=== PATIENT | female | born 1965 | race Caucasian/White ===

== ENCOUNTER 2020-02-11 15:59 | Outpatient (REF) | payer BC, SELFPAY ==
--- NOTE | 2020-02-11 14:15 | PAPFT_PTH ---
PATIENT: Nydia Ash LOC: [facility] U#:[id number] AGE/SX: 54/F ROOM: RE02/11/[address]: Abner Lara MD : 1965 BED: DIS: 02/11/2020 SPEC #: [id number] RECD: 02/11/20 18:17 STATUS: POLLO REQ #: [id number] ANGELA: 02/11/20 14:[address]: Abner Lara DEPT: [facility] Cytology RECD BY: Iesha Singleton ENTERED: 02/11/20 18:17 SP TYPE: PAPFT OTHR DR: Soy Brower Tissues: 1 - CX/ENDOCX FOR PAP SMEARS Procedures: PAP THIN PREP/UVM Screening HPV DNA PROBE Comments: [id number]
== END 2020-02-11 16:19 ==
LOC: LBN 15:59
PROVIDERS: PCP Internal Medicine; Visit Provider Obstetrics & Gynecology
DX: Z11.51 Encounter for screening for human papillomavirus (HPV) (principal)
CPT/HCPCS: 88142; 87624

== ENCOUNTER 2020-03-10 00:42 | Outpatient (CLI) | payer BC, SELFPAY ==
--- NOTE | 2020-03-10 08:00 | DI.MAMMO_ITS ---
EXAM: MAMMO SCREENING CLINICAL HISTORY: screening,Z12.39 TECHNIQUE: Mammograms were interpreted according to the usual protocol including computer analysis w [employer] CAD system, tomosynthesis and C-view imaging. COMPARISON: FINDINGS: The breasts are of moderate density with fairly symmetrical distribution of fibroglandular tissue. N o dominant mass or clumped microcalcification is identified either breast. Current examination jenn red with previous examinations including December 2013 and there is new area of asymmetric density projec gertrude medially and posteriorly in the right breast CC and MLO views. Additional mammographic views of this area are requested to include CC and MLO spot compression views. There are numerous scattered punctate microcalcifications seen throughout both breasts. These appear unchanged from prior study. IMPRESSION: Additional mammographic views of the right breast requested as described above. Breast ultrasound ma y be indicated as well depending on the results of the additional mammographic views. BI-RADS Cat 0 - Assessment Incomplete: Need additional imaging evaluation Breast Density - Category B - Scattered areas of fibroglandular density
--- NOTE | 2020-03-10 08:00 | DI.US_ITS ---
EXAM: US PELVIS TRANSVAGINAL CLINICAL HISTORY: Menorrhagia,N92.0 TECHNIQUE: Ultrasound performed using standard protocol. COMPARISON: No exams were available for comparison FINDINGS: Pelvic ultrasound was performed transabdominally and transvaginally. Please see the accompanying david a sheet for measurements of pelvic structures. The uterus is normal in size and shape and is retroverted. There is a heterogeneous endometrial stripe which is thickened at 13 millimeters. Some increased vas cularity is noted in portions of the endometrium. There is a 7 millimeter endometrial cyst. The ovaries contain multiple small simple cysts or follicles, largest on the right measuring 15 albino meters in diameter. There is a small nonspecific fluid collection adjacent to the left ovary. There is cyst 16 millimeter right paraovarian cyst. Kidneys are normal in size and shape. Incidental 16 millimeter left upper pole simple cysts noted. There is probable small lower pole left renal calculus, nonobstructing. IMPRESSION: Heterogeneous thickened endometrium in a Lilia menopausal patient Possible 5 millimeter nonobstructing left renal calculus. DATA REPOSITORY:
== END 2020-03-10 01:02 ==
PROVIDERS: PCP Internal Medicine; Visit Provider Obstetrics & Gynecology
DX: N85.00 Endometrial hyperplasia, unspecified (principal); N95.9 Unspecified menopausal and perimenopausal disorder; R93.422 Abnormal radiologic findings on diagnostic imaging of left kidney; Z12.31 Encounter for screening mammogram for malignant neoplasm of breast; N64.89 Other specified disorders of breast
CPT/HCPCS: 77063; 77067; 76830; 76856

== ENCOUNTER 2020-03-10 02:35 | Outpatient (CLI) | payer BC, SELFPAY ==
[2020-03-10 10:26] LABS: Abs Immature Grans 0.02 10^3/uL (0.0-0.06); Absolute Basophil Count 0.02 10^3/uL (0.0-0.2); Absolute Eosinophil Count 0.13 10^3/uL (0.0-0.7); Absolute Lymphocyte Count 1.24 10^3/uL (1.2-3.4); Absolute Monocyte Count 0.39 10^3/uL (0.1-0.8); Absolute Neutrophil Count 5.37 10^3/uL (1.2-6.7); Basophils % 0.3; Eosinophils % 1.8; HCT 38.6 % (36.0-46.0); HGB 11.9 g/dL (11.2-15.7); Immature Grans % 0.3; Lymphocytes % 17.3; MCH 24.6 pg (27.0-33.0); MCHC 30.8 % (32.0-36.0); MCV 79.8 fL (80-95); MPV 9.6 fL (8.0-11.0); Monocytes % 5.4; Neutrophils % 74.9; Nucleated RBC 0 %; Platelet Count 344 10^3/uL (130-400); RBC 4.84 10^6/uL (3.93-5.22); RDW 16.8 % (11.7-14.6); RDW-SD 47.8 fL; WBC 7.17 10^3/uL (4.4-10.8)
[2020-03-10 11:30] LABS: ALT 19 U/L (14-59); AST 18 U/L (15-37); Albumin 3.5 g/dL (3.4-5.0); Alkaline Phosphatase 101 U/L (46-116); Anion Gap 8.8 mmol/L (3-11); BUN 11 mg/dL (7-18); Bilirubin, Total 0.3 mg/dL (0.2-1.0); CO2 25.2 mmol/L (21.0-32.0); CREATININE 0.76 mg/dL (0.55-1.02); Calcium 9.1 mg/dL (8.5-10.1); Chloride 105 mmol/L (98-107); Glucose 103 mg/dL (74-106); Sodium 139 mmol/L (136-145); TSH (W/Ref FT4) 1.96 uIU/mL (0.36-3.74); Total Protein 7.4 g/dL (6.4-8.2)
== END 2020-03-10 02:55 ==
PROVIDERS: PCP Internal Medicine; Visit Provider Obstetrics & Gynecology
DX: R63.5 Abnormal weight gain (principal)
CPT/HCPCS: 36415; 80053; 84443; 85025

== ENCOUNTER 2020-03-14 03:49 | Outpatient (CLI) | payer BC, SELFPAY ==
[2020-03-14 13:37] LABS: HCT 34.2 % (36.0-46.0); HGB 10.8 g/dL (11.2-15.7); MCHC 31.6 % (32.0-36.0); MCV 79.2 fL (80-95); Platelet Count 338 10^3/uL (130-400); RBC 4.32 10^6/uL (3.93-5.22); RDW-SD 48.5 fL
[2020-03-15 23:51] LABS: COVID-19 RT-PCR Result NEGATIVE (Negative)
== END 2020-03-14 04:09 ==
PROVIDERS: Visit Provider Obstetrics & Gynecology
DX: Z01.818 Encounter for other preprocedural examination (principal)
CPT/HCPCS: 36415; 85027; 86850; 86900; 86901; U0003

== ENCOUNTER 2020-03-19 07:39 | Day surgery (SDC) | payer BC, SELFPAY ==
[2020-03-19 07:45] VITALS: BP 161/101; PULSE 95; RESP 18; TEMP 35.9; O2SAT 99
[2020-03-19] MEDS: Lactated Ringers 1,000 ML 125 ML IV (08:16)
--- NOTE | 2020-03-19 08:22 | W.PM.HP.N ---
Date of service: 03/19/20 Time of Service: 08:22 Assessment and Plan Assessment and plan (1) Abnormal uterine bleeding: Status: Acute (2) Endometrial thickening on ultrasound: Status: Acute History of Present Illness History of Present Illness Chief Complaint: AUB Narrative: 54-year-old G 13 P 11 presents today for annual examination. The patient has not yet had cessation of menses and these have been regular up until recently where she has developed increasingly heavy and irregular bleeding with intermenstrual spotting. I did see her approximately one month ago for her annual exam and she was referred for ultrasound which demonstrated a thickened heterogenous endometrium measuring 13 mm. My recommendation was for endometrial sampling due to her age and thickened EM on ultrasound. Review of Systems All systems reviewed & are unremarkable except as noted in HPI and below PFSH Medical History (Updated 03/19/20 @ 08:26 by Abner Lara MD) Abnormal uterine bleeding cycles regular. spotting between menses. 06/2015 nl EMBx. Hx of thrombophlebitis (Acute) 1995 Migraine Surgical History section x2 for indications. Fracture, Open Treatment Fx leg. ORIF. Screws removed. Tooth extraction wisdom teeth extraction Family History Mother Essential hypertension Cardiac arrhythmia Hyperlipidemia Sister No problems noted. Other Brain tumor (benign) Social History Smoking/Tobacco Use Status: Never Alcohol Intake: never Drug use: Never Substance use type: does not use Do you feel safe at home: Yes Do you feel safe in your relationship?: Yes Meds Home Medications and Allergies Home Medications Medication Instructions Recorded Confirmed Type acetaminophen [Tylenol] 325 mg PO PRN 06/06/15 03/19/20 History calcium carb-D3-mag ox-zinc ox 1 ea PO DAILY 06/06/15 03/19/20 History [Porfirio Mag Zinc + D Tablet] ibuprofen 200 mg PO PRN 06/06/15 03/19/20 History multivitamin [Multi-Vitamin Daily] 1 ea PO DAILY 06/06/15 03/19/20 History phenylephrine-acetaminophen 1 ea PO PRN 06/06/15 03/19/20 History [Sudafed Pe Pressure+Pain Cplt] vitamin B complex [B Complex] 1 ea PO DAILY 06/06/15 03/19/20 History Allergies Allergy/AdvReac Type Severity Reaction Status Date / Time Penicillins Allergy rash Unverified 03/19/20 07:45 Exam Resp Auscultation: clear to auscultation bilaterally Cardio Rate: regular rate Rhythm: regular rhythm Results Last Vital Signs Temp 96.6 F L 03/19/20 07:45 Pulse 95 H 03/19/20 07:45 Resp 18 03/19/20 07:45 BP 161/101 H 03/19/20 07:45 Pulse Ox 99 03/19/20 07:45 COVID-19 Screening Have you,or household,traveled outside [place] in last 14 days?: No Had IN PERSON contact w/suspected or confirmed C-19 person: No
[2020-03-19] MEDS: Sodium Citrate 30 ML CUP (08:50)
[2020-03-19] MEDS: Lidocaine 1% Multi-Dose 50 ML VIAL (09:05)
--- NOTE | 2020-03-19 09:11 | ENDOMET_PTH ---
PATIENT: Nydia Ash LOC: [facility] U#:[id number] AGE/SX: 55/F ROOM: RE03/19/[address]: Abner Lara MD : 1965 BED: DIS: 03/19/2020 SPEC #: [id number] RECD: 03/19/20 12:19 STATUS: POLLO REMarion #: [id number] ANGELA: 03/19/20 09:[address]: Abner Lara DEPT: Surgical Specimen RECD BY: Jamir Wilson Tissues: 1 - ENDOMETRIUM BX/CURRETTE Procedures: GROSS AND MICRO LEVEL 4 Comments: [id number]
--- NOTE | 2020-03-19 09:24 | W.PM.OP ---
Date of service: 03/19/20 Time of Service: 09:24 Operative Note Operative Note DATE OF PROCEDURE: 03/19/20 PRE-OP DIAGNOSIS: Abnormal uterine bleeding Thickened endometrium on ultrasound POST-OP DIAGNOSIS: same PROCEDURE: Hysteroscopy, D&C SURGEON: Abner Lara ANESTHESIA: ROSA ESTIMATED BLOOD LOSS: 10 PATHOLOGY: other (Endometrial curettings and endometrial polyp) COMPLICATIONS: None Patient was transported to: PACU Patient's condition: stable Findings: 1. Large polyp within the endometrial cavity. Remainder of the lining appeared thin and atrophic Procedure Description: The patient was taken to the operating room and after adequate general anesthesia was obtained the patient was placed in lithotomy position. The patient was prepped and draped in the usual sterile manner. A weighted speculum was placed in the vagina with good visualization of the cervix. The anterior lip of the cervix was grasped with a single-tooth tenaculum. A paracervical block with 10 cc of 1% plain lidocaine was instilled. A 5 mm 30 degree hysteroscope with normal saline distention media was advanced through the cervix. There was a large polyp within the endometrial cavity. The remainder of the lining appeared thin and atrophic. The cavity was explored with polyp forceps and the polyp was removed. Sharp curettage was performed. Several passes were made between sharp curettage and hysteroscopy to ensure that the polyp was removed in total. All specimens were submitted to pathology. The procedure was concluded at this point. All instrumentation was removed. The patient tolerated the procedure well and was transferred to PACU in stable condition.
--- NOTE | 2020-03-19 09:57 | W.PM.DSUDISC ---
Discharge Plan Disposition Patient Disposition: HOME Condition: Good Discharge Details Reason For Visit: AUB. Attending Provider: Abner Lara Primary Care Provider: None,None Home Meds and New Rx's Prescriptions: New lisinopril 10 mg tablet 10 mg PO DAILY Qty: 30 RF: 0 Continued multivitamin [Daily Multi-Vitamin] 1 EACH tablet 1 ea PO DAILY RF: 0 acetaminophen [Tylenol] 325 MG tablet 325 mg PO PRN RF: 0 ibuprofen 200 MG capsule 200 mg PO PRN RF: 0 vitamin B complex [B-Complex] 1 EACH tablet 1 ea PO DAILY RF: 0 Sudafed PE Pressure-Pain 1 EACH tablet 1 ea PO PRN RF: 0 Porfirio Mag Zinc Plus D3 1 EACH tablet 1 ea PO DAILY RF: 0 Discharge Instructions Activity:: Activity as Tolerated Diet:: As Tolerated Discharge Orders Discharge Orders: Discharge Order (Routine); Ordered 03/19/20 Ordered By: Abner Lara DS: Diagnosis Discharge Diagnosis (1) Abnormal uterine bleeding: Status: Acute (2) Endometrial thickening on ultrasound: Status: Acute
[2020-03-19 10:10] VITALS: BP 143/91; PULSE 72; RESP 18; TEMP 36.4; O2SAT 98
== END 2020-03-19 10:30 | disposition home or self-care (01) ==
PROVIDERS: Visit Provider Obstetrics & Gynecology
PROC: 0UDB8ZZ Extraction of Endometrium, Via Natural or Artificial Opening Endoscopic (ICD-10-PCS; CPT 58558; principal; 2020-03-19 09:00)
DX: N93.9 Abnormal uterine and vaginal bleeding, unspecified (principal); N84.0 Polyp of corpus uteri
CPT/HCPCS: 58558; 88305; 99223; J1100; J1885; J2001; J2250; J2405

== ENCOUNTER 2020-03-27 02:14 | Outpatient (CLI) | payer BC, SELFPAY ==
--- NOTE | 2020-03-27 | DI.US_ITS ---
EXAM: MG MAMMO SCREEN CALL BACK UNI CLINICAL HISTORY: F/U MAMMO, NEW ASYMMETRIC DENSITY. TECHNIQUE: Craniocaudal and mediolateral oblique Full Field Digital Mammography views of the breast with Computer Aided Diagnosis followed by Tomosynthesis and breast ultrasound. COMPARISON: US US BREAST RT LIMITED from 03/27/20202011 and 2013 and recent exam 10 March 2020. FINDINGS: Mammography/Tomosynthesis: Masses/Architectural Distortion: None seen. Microcalcifictions: No suspicious pleomorphic-type are seen. Skin Thickening/Nipple Retraction: None. No suspicious persistent abnormality is seen on the additional views performed. Breast US: Echotexture: Normal appearance of the glandular tissue. Shadowing: No suspicious foci. Cyst: None. Solid lesions: None seen. Ductal dilation: None. IMPRESSION: 1. No evidence of malignancy is noted. 2. Unless there is more urgent need, follow-up screening mammography is recommended, as per [place] [employer] guidelines. 3. The findings were discussed with the patient on the date of the examination. BI-RADS Category 1 - Negative Breast Density - Category B - Scattered areas of fibroglandular density A negative radiographic report should not delay biopsy if a dominant or clinically suspicious mass is present. Up to ten percent of cancers are not identified on mammography. A negative report may reinforce clinical impression. Adenosis and dense breasts may obscure an underlying neoplasm. False positive reports average 6 to 10%. Patient will receive a letter notifying them of these results.
== END 2020-03-27 02:34 ==
PROVIDERS: Visit Provider Obstetrics & Gynecology
DX: R92.8 Other abnormal and inconclusive findings on diagnostic imaging of breast (principal); R92.2 Inconclusive mammogram
CPT/HCPCS: 76642; 77063; 77067

== ENCOUNTER 2020-08-04 14:09 | Outpatient (REF) | payer BC, SELFPAY ==
[2020-08-04 14:01] LABS: Anion Gap 8.8 mmol/L (3-11); BUN 9 mg/dL (7-18); CO2 26.2 mmol/L (21.0-32.0); CREATININE 0.78 mg/dL (0.55-1.02); Calcium 9.1 mg/dL (8.5-10.1); Calculated LDL 121 mg/dL (<100); Chloride 105 mmol/L (98-107); Cholesterol 193 mg/dL (<200); Glucose 86 mg/dL (74-106); HDL Cholesterol 40 mg/dL (40-60); Hemoglobin A1C 6.2 % (<5.7); Sodium 140 mmol/L (136-145); Triglyceride 163 mg/dL (<150)
== END 2020-08-04 14:29 ==
LOC: LBN 14:09
PROVIDERS: PCP Nurse Practitioner Family; Visit Provider Nurse Practitioner Family
DX: Z00.00 Encounter for general adult medical examination without abnormal findings (principal); I10 Essential (primary) hypertension
CPT/HCPCS: 80048; 80061; 83036

== ENCOUNTER 2021-11-03 02:23 | Outpatient (CLI) | payer BC, SELFPAY ==
[2021-11-03 14:03] LABS: Anion Gap 7.7 mmol/L (3-11); BUN 11 mg/dL (7-18); CO2 29.3 mmol/L (21.0-32.0); CREATININE 0.8 mg/dL (0.55-1.02); Calcium 9.3 mg/dL (8.5-10.1); Calculated LDL 125 mg/dL (<100); Chloride 106 mmol/L (98-107); Cholesterol 205 mg/dL (<200); Glucose 95 mg/dL (74-106); HDL Cholesterol 53 mg/dL (40-60); Sodium 143 mmol/L (136-145); Triglyceride 136 mg/dL (<150)
== END 2021-11-03 02:24 | disposition home or self-care (01) ==
LOC: LBO 02:23
PROVIDERS: PCP Nurse Practitioner Family; Visit Provider Nurse Practitioner Family
DX: R73.03 Prediabetes (principal)
CPT/HCPCS: 36415; 80048; 80061

== ENCOUNTER → 2023-03-29 01:19 | Outpatient (CLI) | payer BC, SELFPAY ==
--- NOTE | 2023-03-29 08:00 | DI.MAMMO_ITS ---
Exam(s) MAMMO SCREENING EXAM: MAMMO SCREENING CLINICAL HISTORY: screening,z12.39 TECHNIQUE: Mammograms were interpreted according to the usual protocol including computer analysis w [employer] CAD system, tomosynthesis and C-view imaging. COMPARISON: 2013 through 2019 FINDINGS: The breasts are composed of scattered fibroglandular densities, Breast Density category B. No suspicious masses or suspicious microcalcifications are seen. No skin thickening or abnormal axillary lymph nodes are seen. There has been no significant change from prior exams. IMPRESSION: BI-RADS Category 1, Negative mammogram Yearly screening mammography is recommended. Breast Density - Category B, scattered fibroglandular densities. A negative radiographic report should not delay biopsy if a dominant or clinically suspicious mass is present. Up to ten percent of cancers are not identified on mammography. A negative report may reinforce clinical impression. Adenosis and dense breasts may obscure an underlying neoplasm. False positive reports average 6 to 10%. Patient will receive a letter notifying them of these results.
== END ==
PROVIDERS: PCP Nurse Practitioner Family; Visit Provider Nurse Practitioner Family
DX: Z12.31 Encounter for screening mammogram for malignant neoplasm of breast (principal)
CPT/HCPCS: 77063; 77067

== ENCOUNTER 2024-06-07 21:17 | Outpatient (REF) | payer BC, SELFPAY ==
[2024-06-07 21:23] LABS: Abs Immature Grans 0.02 10^3/uL (0.0-0.06); Absolute Basophil Count 0.02 10^3/uL (0.0-0.2); Absolute Eosinophil Count 0.05 10^3/uL (0.0-0.7); Absolute Lymphocyte Count 1.36 10^3/uL (1.2-3.4); Absolute Monocyte Count 0.33 10^3/uL (0.1-0.8); Absolute Neutrophil Count 4.86 10^3/uL (1.2-6.7); Basophils % 0.3 %; Eosinophils % 0.8 %; HGB 16.2 g/dL (11.2-15.7); Immature Grans % 0.3 %; Lymphocytes % 20.5 %; MCH 30.3 pg (27.0-33.0); MCHC 33.8 % (32.0-36.0); MCV 90 fL (80-95); MPV 10.6 fL (8.0-11.0); Neutrophils % 73.1 %; Platelet Count 313 10^3/uL (130-400); RBC 5.34 10^6/uL (3.93-5.22); RDW 13.4 % (11.7-14.6); RDW-SD 44.6 fL; WBC 6.64 10^3/uL (4.4-10.8)
[2024-06-07 21:40] LABS: ALT 30 U/L (14-59); AST 22 U/L (15-37); Albumin 4.1 g/dL (3.4-5.0); Alkaline Phosphatase 125 U/L (46-116); Anion Gap 9.7 mmol/L (3-11); BUN 13 mg/dL (7-18); Bilirubin, Total 0.44 mg/dL (0.2-1.0); CO2 27.3 mmol/L (21.0-32.0); CREATININE 0.9 mg/dL (0.55-1.02); Calcium 10.2 mg/dL (8.5-10.1); Chloride 107 mmol/L (98-107); Estimated GFR 73.19 (mL/min/1.73m2); Glucose 88 mg/dL (74-106); Potassium 4.2 mmol/L (3.5-5.1); Sodium 144 mmol/L (136-145); Total Protein 8.1 g/dL (6.4-8.2)
[2024-06-07 21:43] LABS: Hemoglobin A1C 5.9 % (<5.7)
[2024-06-07 22:53] LABS: Calculated LDL 157 mg/dL (<100); Cholesterol 240 mg/dL (<200); HDL Cholesterol 49 mg/dL (40-60); Triglyceride 173 mg/dL (<150)
[2024-06-08 18:49] LABS: HIV-1/2 Ag & Ab Screen Negative (Negative)
[2024-06-08 18:53] LABS: Hepatitis C Ab w Rflx HCV PCR Negative (Negative)
[2024-06-08 19:57] LABS: HBs Antibody, Quant <3.1 mIU/mL (See Note); Hep B Surface Ab Negative (See Note); Hepatitis B Core Antibody Negative (Negative); Hepatitis B Surface Antigen Negative (Negative)
== END 2024-06-07 21:18 | disposition home or self-care (01) ==
LOC: LBN 21:17
PROVIDERS: PCP Nurse Practitioner Family; Visit Provider Nurse Practitioner Family
DX: E78.5 Hyperlipidemia, unspecified (principal); I10 Essential (primary) hypertension; Z11.59 Encounter for screening for other viral diseases; Z11.4 Encounter for screening for human immunodeficiency virus [HIV]
CPT/HCPCS: 80053; 80061; 86704; 86706; 86803; 87340; 87389; 83036; 85025

== ENCOUNTER 2024-11-08 09:42 | Outpatient (CLI) | payer BC, SELFPAY ==
[2024-11-08 10:32] LABS: HCT 45.2 % (36.0-46.0); HGB 15.2 g/dL (11.2-15.7); MCH 30.8 pg (27.0-33.0); MCHC 33.6 % (32.0-36.0); MCV 92 fL (80-95); MPV 9.9 fL (8.0-11.0); Platelet Count 279 10^3/uL (130-400); RBC 4.93 10^6/uL (3.93-5.22); RDW 13.3 % (11.7-14.6); RDW-SD 45.5 fL; WBC 5.42 10^3/uL (4.4-10.8)
[2024-11-08 10:57] LABS: ALT 30 U/L (14-59); AST 20 U/L (15-37); Albumin 3.7 g/dL (3.4-5.0); Alkaline Phosphatase 116 U/L (46-116); Bilirubin, Direct 0.1 mg/dL (0.0-0.2); Bilirubin, Total 0.4 mg/dL (0.2-1.0); Calcium 9.7 mg/dL (8.5-10.1); Total Protein 7.7 g/dL (6.4-8.2)
== END 2024-11-08 09:43 | disposition home or self-care (01) ==
PROVIDERS: PCP Nurse Practitioner Family; Visit Provider Nurse Practitioner Family
DX: D75.1 Secondary polycythemia (principal)
CPT/HCPCS: 36415; 80076; 85027; 82310

== ENCOUNTER 2025-06-10 13:50 | Outpatient (CLI) | payer BC, SELFPAY ==
[2025-06-10 16:42] LABS: Anion Gap 10 mmol/L (3-11); BUN 16 mg/dL (9-23); CO2 27.0 mmol/L (20.0-31.0); Calcium 10.4 mg/dL (8.3-10.6); Chloride 104 mmol/L (98-107); Glucose 126 mg/dL (74-106); Potassium 4.0 mmol/L (3.5-5.1); Sodium 141 mmol/L (136-145)
[2025-06-10 17:02] LABS: Hemoglobin A1C 5.8 % (<5.7)
== END 2025-06-10 13:51 | disposition home or self-care (01) ==
PROVIDERS: PCP Nurse Practitioner Family; Visit Provider Nurse Practitioner Family
DX: R73.03 Prediabetes (principal); E78.5 Hyperlipidemia, unspecified; I10 Essential (primary) hypertension
CPT/HCPCS: 36415; 80048; 83036

== ENCOUNTER 2025-07-17 14:22 | Outpatient (REF) | payer BC, SELFPAY ==
--- NOTE | 2025-07-17 14:00 | PAPFT_PTH ---
PATIENT: Nydia Ash LOC: [facility] U#:[id number] AGE/SX: 60/F ROOM: RE07/17/[address]: Nydia Grijalva MD : 1965 BED: DIS: 07/17/2025 SPEC #: [id number] RECD: 07/17/25 17:26 STATUS: POLLO REMarion #: [id number] ANGELA: 07/17/25 14:[address]: Nydia Grijalva DEPT: [facility] Cytology RECD BY: Iesha Singleton ENTERED: 07/17/25 17:26 SP TYPE: PAPFT OTHR DR: Thuy Baltazar, DANDY Tissues: 1 - CX/ENDOCX FOR PAP SMEARS Procedures: PAP THIN PREP/UVM Screening HPV DNA PROBE Comments: [id number] (HPV 16 & 18/45)
--- NOTE | 2025-07-17 14:00 | ENDOMET_PTH ---
PATIENT: Nydia Ash LOC: [facility] U#:[id number] AGE/SX: 60/F ROOM: RE07/17/[address]: Nydia Grijalva MD : 1965 BED: DIS: 07/17/2025 SPEC #: [id number] RECD: 07/17/25 17:17 STATUS: POLLO REQ #: [id number] ANGELA: 07/17/25 14:[address]: Nydia Grijalva DEPT: Surgical Specimen RECD BY: Iesha Singleton ENTERED: 07/17/25 17:17 SP TYPE: Endomet OT DR: DANDY Reddy Tissues: 1 - ENDOMETRIUM BX/CURRETTE Procedures: GROSS AND MICRO LEVEL 4 Comments: [id number]
== END 2025-07-17 14:23 | disposition home or self-care (01) ==
LOC: LBN 14:22
PROVIDERS: PCP Nurse Practitioner Family; Visit Provider Obstetrics & Gynecology
DX: Z12.4 Encounter for screening for malignant neoplasm of cervix (principal)
CPT/HCPCS: 88142; 88305; 87624